=== PATIENT | female | born 1975 | race Caucasian/White ===

== ENCOUNTER 2022-06-24 05:00 | Day surgery (SDC) | payer OTHER ==
[~2022-06-24] VITALS: Ht 160 cm; Wt 70.3 kg
[~2022-06-24 05:00] MED LIST: CANDESARTAN CILE8 MG PO; PEPCID AC10 MG PO; TOPROL XL50 M1 PO
== END 2022-06-24 11:30 | disposition home or self-care (01) ==
LOC: CIR.AMB 05:00
PROVIDERS: ATTEND Obstetrics & Gynecology
DX: N84.1 Polyp of cervix uteri (principal); N84.0 Polyp of corpus uteri; D64.9 Anemia, unspecified; I10 Essential (primary) hypertension; Z20.822 Contact with and (suspected) exposure to COVID-19